=== PATIENT | female | born 1945 | race Caucasian/White ===

== ENCOUNTER 2016-12-16 09:44 | Emergency (ER) | payer MEDICARE | END 2016-12-16 11:30 | disposition home or self-care (01) | LOC: ER 09:44 | DX: M79.605 Pain in left leg (principal); R60.0 Localized edema; J44.9 Chronic obstructive pulmonary disease, unspecified; I25.2 Old myocardial infarction; F17.210 Nicotine dependence, cigarettes, uncomplicated; Z90.49 Acquired absence of other specified parts of digestive tract; Z90.710 Acquired absence of both cervix and uterus; Z79.899 Other long term (current) drug therapy; Z88.5 Allergy status to narcotic agent; Z88.8 Allergy status to other drugs, medicaments and biological substances | CPT/HCPCS: 36415 ==

== ENCOUNTER 2017-02-14 13:45 | Emergency (ER) | payer MEDICARE | END 2017-02-14 16:30 | disposition home or self-care (01) | LOC: ER 13:45 | DX: J44.1 Chronic obstructive pulmonary disease with (acute) exacerbation (principal); I25.2 Old myocardial infarction; F17.210 Nicotine dependence, cigarettes, uncomplicated; Z90.49 Acquired absence of other specified parts of digestive tract; Z90.710 Acquired absence of both cervix and uterus; Z79.899 Other long term (current) drug therapy; Z88.5 Allergy status to narcotic agent; Z88.8 Allergy status to other drugs, medicaments and biological substances | CPT/HCPCS: 36415; 96374 ==